=== PATIENT | male | born 1960 | race Caucasian/White ===

== ENCOUNTER → 2020-03-29 | Outpatient (CLI) | payer OTHER ==
--- NOTE | 2020-03-29 18:18 | RAD ---
XR CERVICAL SPINE 2-3V DATE: 03/29/2020 10:16 AM INDICATION: Reason: NECK PAIN X 6 WEEKS, ARM NUMBNESS / Spl. Instructions: / History: COMPARISON: None. FINDINGS: The cervical spine is visualized to the level of the cervicothoracic junction on the latera l views. Bones/Alignment: No evidence of acute fracture. 2 mm retrolisthesis at C5-6. Normal alignment of the lateral masses of C1 on C2. Joints: Multilevel degenerative disc disease, severe at C5-6 and C6-7. The facets are normally aligne d. Soft tissue: No significant prevertebral soft tissue swelling. IMPRESSION: Moderate to severe cervical spondylosis. This could be further characterized with MRI, as clinically warranted. Electronically signed by: Dion Huddleston MD (03/29/2020 6:15 PM) ARELIS
== END ==
LOC: RAD 10:09
PROVIDERS: ATTEND Nurse Practitioner Family
DX: M47.812 Spondylosis without myelopathy or radiculopathy, cervical region (principal); R20.0 Anesthesia of skin
CPT/HCPCS: 72040

== ENCOUNTER → 2020-12-27 | Outpatient (CLI) | payer OTHER ==
--- NOTE | 2020-12-27 13:04 | RAD ---
EXAM: XR FOOT_RIGHT 2 VIEWS 12/27/2020 9:32 AM CLINICAL INDICATION: Right foot pain after dropping weight on it COMPARISON: None TECHNIQUE: 2 views of the right foot FINDINGS: No acute fracture. Alignment is normal. Mild joint space narrowing at the great toe MTP hyacinth int. An os peroneum is noted. No focal soft tissue abnormality. IMPRESSION: No acute osseous abnormality. Electronically signed by: Mandy Brown MD (12/27/2020 1:02 PM) [id number]
== END ==
LOC: RAD 09:26
PROVIDERS: ATTEND Nurse Practitioner Primary Care
DX: S99.921A Unspecified injury of right foot, initial encounter (principal); M25.871 Other specified joint disorders, right ankle and foot; X58.XXXA Exposure to other specified factors, initial encounter; Y93.89 Activity, other specified; Y92.89 Other specified places as the place of occurrence of the external cause; Y99.8 Other external cause status
CPT/HCPCS: 73620